=== PATIENT | female | born 1965 | race Caucasian/White ===

== ENCOUNTER → 2017-09-14 | Outpatient (CLI) | payer BC ==
[~2017-09-14] MED LIST: CHOL5000 PO; LEXA20TA PO; MELA1TAB18 PO; VALE445C2
--- NOTE | 2017-09-15 22:55 | HM ---
Date Performed: 09/14/2017 Time Performed: 13:02:00 HOOKUP DATE: 09/14/17 01:02:00 PM [facility] ANALYSIS START TIME: 09/14/2017 1:07:00 PM ANALYSIS END TIME: 09/15/2017 1:11:00 PM PATIENT AGE: 51 PATIENT HEIGHT PATIENT WEIGHT DRUG LIST PATIENT DIAGNOSIS: ATYPICAL CP/PALPS TEST NARRATIVE: The patient's average heart rate was 77 BPM. Heart rates greater than 120 B PM were noted < 1% of the time. Heart rates less than 50 BPM were noted < 1% of the time. No shilo ses exceeding 2.0 seconds were noted. 4 ventricular ectopics, which represented < 1% of the total beat count, were noted. The highest ventricular ectopic frequency occurred from 09:00 AM to 10:00 A M Fri. During this time 2 VE(s) occurred. Ventricular ectopics were observed as 4 isolated beat(s) only. No couplets or runs were noted. 6 supraventricular ectopics, which represented < 1% of the total beat count, were noted. The highest supraventricular ectopic frequency occurred from 03:00 PM to 04:00 PM Sen[facility]. During this time 2 SVE(s) occurred. No episodes of ST depression (defined as - 1.0 mm or more) were noted in channel 1. No episodes of ST depression (defined as -1.0 mm or more) w ere noted in channel 2. No episodes of ST depression (defined as -1.0 mm or more) were noted in [place] 3. TEST INTERPRETATION: 24 Hour Holter Moniter - Dr. Mario Valentine Indications:Atypical chest p ain / Palpatations Patient was monitored for 24 hours and 4 minutes. The minimum rate was 48 beats pe r minute and the maximum was 121 beats per minute with an average heart rate of 77 beats per minute. Occassional premature atrial contractions and premature ventricular contractions were seen. Conclusio n: 1. Holter notable only for periods of sinus tachycardia with occassional ectopy, but no atrial fib rillation or sustained arrhythmia. 2. No symptoms were reported with this recording. Signed by : Mario Valentine
== END ==
LOC: HCAV 12:44
PROVIDERS: ATTEND Family Medicine
DX: R00.2 Palpitations (principal)
CPT/HCPCS: 93225; 93226